=== PATIENT | female | born 2000 | race Caucasian/White ===

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

== ENCOUNTER 2019-10-05 13:38 | Emergency (ER) | payer SELFPAY ==
[2019-10-05 14:01] VITALS: TEMP 97.4
--- NOTE | 2019-10-05 15:03 | ED.PDOC ---
History of Present Illness - General Chief Complaint: Problem Stated Complaint: burning with urination Time Seen by Provider: 10/05/19 14:37 Source: patient Exam Limitations: no limitations - History of Present Illness Initial Comments: 4D DYSURIA, FREQUENCY. TOOK AZO. NKMA. DENIES PREVIOUS UTI. Timing/Duration: constant Quality: burning Onset Location: suprapubic Radiation: left flank Activites at Onset: none Prior abdominal problems: none Improving Factors: nothing Worsening Factors: nothing Associated Symptoms: denies symptoms Allergies/Adverse Reactions: Allergies NO KNOWN ALLERGY Allergy (Verified 10/05/19 14:01) Home Medications: Ambulatory Orders Amphetamine-Dextroamphetamine [Adderall] 30 mg PO DAILY 02/18/16 Naproxen [Naprosyn] 500 mg PO BID #20 tab 06/22/16 Ondansetron [Zofran Odt] 4 mg PO Q8HRS PRN #20 tab 06/22/16 Acetamin W/Cod #3 Tab [Tylenol w/CODEINE #3] 1 ea PO Q6HR PRN #40 tab 10/08/18 Cefuroxime Axetil [Ceftin] 500 mg PO Q12H #20 tablet 10/08/18 Sulfa/Trimeth 800/160 (Ds) Tab [Bactrim DS Tab] 1 unit PO BID #6 tab 10/05/19 Review of Systems - Review of Systems Constitutional: States: no symptoms reported. Denies: chills, fever EENTM: States: no symptoms reported Respiratory: States: no symptoms reported Cardiology: States: no symptoms reported Gastrointestinal/Abdominal: States: no symptoms reported Genitourinary: States: dysuria, frequency, hematuria Musculoskeletal: States: no symptoms reported Skin: States: no symptoms reported Neurological: States: no symptoms reported Endocrine: States: no symptoms reported Hematologic/Lymphatic: States: no symptoms reported All other Systems: Reviewed and Negative Past Medical History (General) - Patient Medical History Hx Seizures: No Hx Stroke: No Hx Dementia: No Hx Asthma: No Hx of COPD: No Hx Cardiac Disorders: Yes Hx Congestive Heart Failure: No Hx Pacemaker: No Hx Hypertension: No Hx Thyroid Disease: No Hx Diabetes: No Hx Gastroesophageal Reflux: No Hx Renal Disease: No Hx Cancer: No Hx of HIV: No Hx Hepatitis C: No Hx MRSA: No Surgical History: no surgical history - Vaccination History Hx Tetanus, Diphtheria Vaccination: Yes Hx Influenza Vaccination: No Hx Pneumococcal Vaccination: No - Social History Hx Tobacco Use: No - Female History Patient : No Family Medical History - Family History Mother Family History: No Known Living Status: Still Living Hx Family Hypertension: Yes Hx Family Diabetes: Yes Physical Exam - Physical Exam General Appearance: Alert, Obese Eyes, Ears, Nose, Throat Exam: PERRL/EOMI, normal ENT inspection Neck: non-tender, full range of motion Cardiovascular/Respiratory: regular rate, rhythm, no M/R/G Gastrointestinal/Abdominal: normal bowel sounds, soft, no organomegaly, no pulsatile mass, other - POS SUPRAPUBIC TENDERNESS. 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 UTI. ROCEPHIN AND PO BACTRIM. REFLEX TO CX. Departure - Departure Clinical Impression: UTI (urinary tract infection) Disposition: Discharge to Home or Self Care Condition: Good Departure Forms: ED Discharge - Pt. Copy, Patient Portal Self Enrollment Instructions: DI for Urinary Tract Infection (UTI) Diet: resume usual diet Activity: increase activity as tolerated Prescriptions: Sulfa/Trimeth 800/160 (Ds) Tab [Bactrim DS Tab] 1 unit PO BID #6 tab Home Medications: Ambulatory Orders Amphetamine-Dextroamphetamine [Adderall] 30 mg PO DAILY 02/18/16 Naproxen [Naprosyn] 500 mg PO BID #20 tab 06/22/16 Ondansetron [Zofran Odt] 4 mg PO Q8HRS PRN #20 tab 06/22/16 Acetamin W/Cod #3 Tab [Tylenol w/CODEINE #3] 1 ea PO Q6HR PRN #40 tab 10/08/18 Cefuroxime Axetil [Ceftin] 500 mg PO Q12H #20 tablet 10/08/18 Sulfa/Trimeth 800/160 (Ds) Tab [Bactrim DS Tab] 1 unit PO BID #6 tab 10/05/19
[2019-10-05] MEDS ORDERED: cefTRIAXone SODIUM 1 GM VIAL IM ONE (15:04)
[2019-10-05] MEDS ORDERED: LIDOCAINE 1% 10 ML VIAL INJ ONE (15:09)
[2019-10-05 15:28] VITALS: BP 118/84; O2SAT 97
== END 2019-10-05 15:29 | disposition home or self-care (01) ==
LOC: ER 13:38
DX: N39.0 Urinary tract infection, site not specified (principal); E66.9 Obesity, unspecified
CPT/HCPCS: 81001; 87086; J0696